=== PATIENT | female | born 1950 | race Caucasian/White ===

== ENCOUNTER → 2016-07-08 | Outpatient (CLI) | payer OTHER ==
[~2016-07-08] MED LIST: CALAN PO; CENESTIN0.45 MG PO; CLARINEX5 MG PO; IMITREX PO; LIPITOR PO
[2016-07-08 13:18] LABS: THYROID STIMULATING HORMONE 2.47 uIU/ml (0.34-5.60)
[2016-07-08 13:25] LABS: FREE THYROXIN (T4) 0.75 ng/dL (0.58-1.64)
== END | disposition home or self-care (01) ==
LOC: CLAB 11:25
PROVIDERS: Physician Assistant
DX: R63.5 Abnormal weight gain (principal)
CPT/HCPCS: 36415; 84439; 84443